=== PATIENT | female | born 1965 | race Caucasian/White ===

== ENCOUNTER → 2017-02-01 | Outpatient (CLI) | payer BC, OTHER ==
--- NOTE | 2017-02-01 16:59 | REP ---
MAXILLOFACIAL CT WITHOUT CONTRAST: HISTORY: Chronic maxillary sinusitis. COMPARISON: 09/03/2015 Minimal mucosal thickening is present in the right maxillary sinus. A retention cyst or polyp is present in the left maxillary sinus. The remaining sinuses are clear. The osteomeatal units are patent. The middle and inferior nasal turbinates are partially paradoxical. There is minimal deviation of the nasal septum to the right. A spur is present arising from the right side of the nasal septum. The spur abuts the right inferior nasal turbinate. The cribriform plate, medially pham of the orbits and optic canals are intact. The carotid canals form a segment of the posterolateral pham of the sphenoid sinus. The sphenoid sinus septum inserts into the left internal carotid canal wall. IMPRESSION:1. Sinus mucosal thickening as described above. 2. Left maxillary sinus retention cyst or polyp. Signed by Rainer Roberts MD 02/01/2017 05:02 P
== END ==
LOC: M RAD 15:20
PROVIDERS: ATTEND Otolaryngology
DX: J32.0 Chronic maxillary sinusitis (principal)

== ENCOUNTER → 2017-04-07 | Outpatient (CLI) | payer BC, OTHER ==
[2017-04-07 13:26] LABS: BASO % 0.8 % (0.0-1.0); EOS # 0.1 10^3/uL (0.0-0.50); EOS % 2.5 % (0.0-3.0); HEMATOCRIT 41.8 % (36.0-47.0); HEMOGLOBIN 13.9 g/dl (12.0-16.0); IMMATURE GRANULOCYTE % 0.2 % (0-0); LYMPH # 1.3 10^3/uL (1.5-4.5); LYMPH % 27.4 % (24.0-44.0); MEAN CORPUSCULAR HEMOGLOBIN 31.7 pg (27.0-33.0); MEAN CORPUSCULAR HGB CONC 33.3 g/dl (32.0-36.5); MEAN CORPUSCULAR VOLUME 95.2 fl (80.0-96.0); MONO # 0.4 10^3/uL (0.0-0.8); MONO % 7.8 % (0.0-5.0); NEUTROPHILS % 61.3 % (36.0-66.0); PLATELET COUNT, AUTOMATED 189 10^3/uL (150-450); RED BLOOD COUNT 4.39 10^6/uL (4.00-5.40); RED CELL DISTRIBUTION WIDTH 11.8 % (11.5-14.5); WHITE BLOOD COUNT 4.9 10^3/uL (4.0-10.0)
[2017-04-07 13:51] LABS: IMMUNOGLOBULIN G 1050 MG/DL (681-1648); IMMUNOGLOBULIN M 135 MG/DL (40-230)
[2017-04-07 14:35] LABS: IMMUNOGLOBULIN E 10.7 IU/ML (<100)
[2017-04-08 09:43] LABS: RUBELLA IgG QUALITATIVE IMMUNE (IMMUNE)
[2017-04-13 00:06] LABS: ANTI TETANUS ANTIBODY 3.04 IU/mL (<0.10); IMMUNOGLOBULIN D 1.17 mg/dL (<14.11); STREP PNEUMO TYPE 1 0.3 ug/mL (>1.3); STREP PNEUMO TYPE 12F 0.2 ug/mL (>1.3); STREP PNEUMO TYPE 14 17.1 ug/mL (>1.3); STREP PNEUMO TYPE 18C 0.4 ug/mL (>1.3); STREP PNEUMO TYPE 19A 9.5 ug/mL (>1.3); STREP PNEUMO TYPE 19F 4.8 ug/mL (>1.3); STREP PNEUMO TYPE 23F 1.7 ug/mL (>1.3); STREP PNEUMO TYPE 3 2.5 ug/mL (>1.3); STREP PNEUMO TYPE 4 9.7 ug/mL (>1.3); STREP PNEUMO TYPE 6B 4.6 ug/mL (>1.3); STREP PNEUMO TYPE 7F 2.1 ug/mL (>1.3); STREP PNEUMO TYPE 8 0.9 ug/mL (>1.3); STREP PNEUMO TYPE 9N 12.1 ug/mL (>1.3); STREP PNEUMO TYPE 9V 0.5 ug/mL (>1.3)
== END ==
LOC: M SMT 11:47
DX: J31.0 Chronic rhinitis (principal); D84.9 Immunodeficiency, unspecified
CPT/HCPCS: 82785

== ENCOUNTER → 2017-06-30 | Outpatient (CLI) | payer BC, OTHER | LOC: M RAD 15:46 | DX: Z12.31 Encounter for screening mammogram for malignant neoplasm of breast (principal) | CPT/HCPCS: 77067 ==

== ENCOUNTER → 2018-06-01 | Outpatient (CLI) | payer BC, OTHER ==
--- NOTE | 2018-06-01 13:26 | REP ---
CHEST PA AND LATERAL: 06/01/2018. Clinical history: Fever and cough. Influenza symptoms. Findings: No prior studies. Lungs are well inflated. The CP angles sharply defined without effusion. There is no lateral pleural thickening or apical scarring. I see no dense consolidation, atelectasis or mass. The heart, mediastinal and hilar contours are normal. Aorta and airway intact bony thorax without focal lesion. No free air. Impression: 1. No acute infiltrate or other significant acute finding in the chest. Electronically Signed by Pollo Henry MD 06/01/2018 01:17 P
== END ==
LOC: M LRY 12:57
PROVIDERS: ATTEND Physician Assistant
DX: R50.9 Fever, unspecified (principal); R05 Cough; J10.1 Influenza due to other identified influenza virus with other respiratory manifestations

== ENCOUNTER → 2018-06-01 | Outpatient (REF) | payer BC, OTHER | LOC: M SFHCLERA 17:28 | PROVIDERS: ATTEND Physician Assistant | DX: R50.9 Fever, unspecified (principal) ==

== ENCOUNTER → 2023-10-12 | Outpatient (CLI) | payer BC, OTHER ==
[~2023-10-12] MED LIST: PROHANCE 279.3MG/ML 15ML VIAL ONE
== END ==
LOC: M PLAIMG 13:17
PROVIDERS: ATTEND Internal Medicine Nephrology
DX: D41.01 Neoplasm of uncertain behavior of right kidney (principal)

== ENCOUNTER → 2024-11-01 | Outpatient (CLI) | payer OTHER | LOC: M RAD 11:06 | PROVIDERS: ATTEND Registered Nurse | DX: J32.8 Other chronic sinusitis (principal); J34.2 Deviated nasal septum; J34.89 Other specified disorders of nose and nasal sinuses ==